=== PATIENT | male | born 1970 | race Native Hawaiian/Other Pacific Islander ===

== ENCOUNTER 2018-06-21 20:09 | Emergency (ER) | payer SELFPAY ==
[~2018-06-21] VITALS: Ht 182.9 cm; Wt 93.9 kg
[2018-06-21 20:18] VITALS: BP 123/78
[2018-06-21] MEDS ORDERED: KETOROLAC TROMETH 60MG/2ML VIAL IM ONE (23:45)
== END 2018-06-21 23:49 | disposition home or self-care (01) ==
LOC: ER 20:09
DX: S52.502A Unspecified fracture of the lower end of left radius, initial encounter for closed fracture (principal); S22.32XA Fracture of one rib, left side, initial encounter for closed fracture; V86.56XA Driver of dirt bike or motor/cross bike injured in nontraffic accident, initial encounter; Y93.89 Activity, other specified; Y99.8 Other external cause status; Y92.89 Other specified places as the place of occurrence of the external cause
CPT/HCPCS: 29125; 71101; 73110; 96372

== ENCOUNTER 2021-11-09 22:23 | Emergency (ER) | payer BC, MEDICAID ==
[~2021-11-09] VITALS: Ht 182.9 cm; Wt 90.7 kg
[2021-11-09 22:23] VITALS: BP 105/77
[2021-11-09] MEDS ORDERED: IPRATROPIUM BROM 0.5 MG/2.5ML INH SOL NEB ONE (22:30)
[2021-11-09] MEDS ORDERED: ALBUTEROL SULF 2.5 MG/0.5ML(0.5%) NEB SOLN NEB ONE (22:30)
[2021-11-10] MEDS ORDERED: ALBUTEROL SULF 2.5 MG/0.5ML(0.5%) NEB SOLN NEB ONE (01:15)
[2021-11-10 01:20] LABS: Basophils # (auto) 0 10 ^3/uL (0-0.2); Basophils % (auto) 0.1 % (0.0-2.0); Eosinophils # (auto) 0 10 ^3/uL (0-0.8); Eosinophils % (auto) 0.1 % (0.0-7.0); Hematocrit 43.6 % (41.0-53.0); Hemoglobin 14.5 g/dL (13.5-17.5); Lymphocytes # (auto) 0.5 10 ^3/uL (0.4-5.4); Lymphocytes % (auto) 5.5 % (10.0-50.0); Mean Corpuscular Hemoglobin 31.4 pg (28.0-32.0); Mean Corpuscular Hgb Conc. 33.2 g/dL (32.0-36.0); Mean Corpuscular Volume 94.4 fL (80.0-100.0); Monocytes # (auto) 0.4 10 ^3/uL (0-1.3); Monocytes % (auto) 4.3 % (0.0-12.0); Neutrophils # (auto) 7.9 10 ^3/uL (1.6-8.6); Red Blood Cells 4.61 10^6/uL (4.5-5.90); White Blood Cell 8.7 10^3/uL (4.4-10.8)
[2021-11-10 01:38] LABS: Albumin 3.8 g/dL (3.4-5.0); BUN/Creatinine Ratio 11.2; Calcium 8.9 mg/dL (8.5-10.1); Potassium 3.8 mmol/L (3.5-5.1)
[2021-11-10 01:41] LABS: Bilirubin, Total 0.3 mg/dL (0.2-1.0); Total Protein 8.2 g/dL (6.4-8.2)
[2021-11-10] MEDS ORDERED: ALBU108A5 IN (05:17)
[2021-11-10] MEDS ORDERED: PRED20TA2 PO (05:17)
[2021-11-10] MEDS ORDERED: LEVO500T31 PO (05:45)
== END 2021-11-10 07:30 | disposition left against medical advice (07) ==
LOC: ER 22:23
DX: S22.31XA Fracture of one rib, right side, initial encounter for closed fracture (principal); J45.909 Unspecified asthma, uncomplicated; J18.9 Pneumonia, unspecified organism; Z76.0 Encounter for issue of repeat prescription; F17.210 Nicotine dependence, cigarettes, uncomplicated; X58.XXXA Exposure to other specified factors, initial encounter; Y93.89 Activity, other specified; Y92.89 Other specified places as the place of occurrence of the external cause; Y99.8 Other external cause status
CPT/HCPCS: 36415; 71045; 80053; 84484; 85025; 93005; 94640; 99285; J7644

== ENCOUNTER 2021-12-08 17:00 | Inpatient (IN) | payer BC ==
[~2021-12-08] VITALS: Ht 182.9 cm; Wt 96.2 kg
[~2021-12-08 17:00] MED LIST: ALBU108A5 IN; LEVO500T31 PO; PRED20TA2 PO
[2021-12-08] MEDS ORDERED: VANCOMYCIN 1GM/250ML 250 ML IV ONE (19:15)
[2021-12-08 19:39] LABS: Basophils # (auto) 0.1 10 ^3/uL (0-0.2); Basophils % (auto) 0.5 % (0.0-2.0); Eosinophils # (auto) 0.4 10 ^3/uL (0-0.8); Eosinophils % (auto) 3.5 % (0.0-7.0); Hematocrit 41.3 % (41.0-53.0); Hemoglobin 13.3 g/dL (13.5-17.5); Lymphocytes # (auto) 1.2 10 ^3/uL (0.4-5.4); Lymphocytes % (auto) 10.5 % (10.0-50.0); Mean Corpuscular Hemoglobin 30.2 pg (28.0-32.0); Mean Corpuscular Hgb Conc. 32.1 g/dL (32.0-36.0); Mean Corpuscular Volume 94.1 fL (80.0-100.0); Monocytes # (auto) 0.9 10 ^3/uL (0-1.3); Monocytes % (auto) 7.9 % (0.0-12.0); Neutrophils # (auto) 8.6 10 ^3/uL (1.6-8.6); Neutrophils % (auto) 77.6 % (37.0-80.0); Red Blood Cells 4.39 10^6/uL (4.5-5.90); Red Cell Distribution Width 14.4 % (11.8-14.3); White Blood Cell 11.1 10^3/uL (4.4-10.8)
[2021-12-08 19:53] LABS: Albumin 3.2 g/dL (3.4-5.0); BUN/Creatinine Ratio 11.9; Calcium 8.5 mg/dL (8.5-10.1)
[2021-12-08 19:55] LABS: Bilirubin, Total 0.2 mg/dL (0.2-1.0); Total Protein 6.7 g/dL (6.4-8.2)
[2021-12-08] MEDS ORDERED: IOHEXOL 350 MG/ML 100ML IJ ONE (20:01)
[2021-12-09] MEDS ORDERED: ONDANSETRON HCL 4 MG/2 ML VIAL IV PRN (04:15)
[2021-12-09] MEDS ORDERED: HYDROcodone-ACET 5/325MG TAB PO PRN (04:15)
[2021-12-09] MEDS ORDERED: ALBUTEROL SULF 2.5 MG/0.5ML(0.5%) NEB SOLN NEB PRN (04:15)
[2021-12-09] MEDS ORDERED: TEMAZEPAM 15 MG CAP PO PRN (04:15)
[2021-12-09] MEDS ORDERED: ACETAMINOPHEN 325 MG TAB PO PRN (04:15)
[2021-12-09 04:24] VITALS: BP 126/81
[2021-12-09] MEDS ORDERED: cefTRIAXone 1GM/50ML D5W 50 ML IV SCH (04:30)
[2021-12-09 05:36] VITALS: BP 136/81
[2021-12-09] MEDS: CLINDAMYCIN 600MG IV 50 ML IV SCH ×2 (06:13→13:29)
[2021-12-09] MEDS ORDERED: PANTOPRAZOLE 40 MG TAB PO SCH (10:00)
[2021-12-09] MEDS ORDERED: predniSONE 20 MG TAB PO SCH (10:00)
[2021-12-09 11:34] VITALS: BP 126/94
[2021-12-09 13:15] VITALS: BP 131/92
[2021-12-09 16:36] VITALS: BP 132/77
== END 2021-12-09 19:45 | disposition left against medical advice (07) | DRG 603 ==
LOC: ER 17:09 → OVERFLOW 12-09 04:11 → WEST WING 12-09 05:11
PROVIDERS: ADMIT Nurse Practitioner; ATTEND Internal Medicine
DX: L03.115 Cellulitis of right lower limb (principal); R65.10 Systemic inflammatory response syndrome (SIRS) of non-infectious origin without acute organ dysfunction; L02.415 Cutaneous abscess of right lower limb; D72.829 Elevated white blood cell count, unspecified; F12.90 Cannabis use, unspecified, uncomplicated; I87.8 Other specified disorders of veins; J44.9 Chronic obstructive pulmonary disease, unspecified; Z20.822 Contact with and (suspected) exposure to COVID-19; F19.10 Other psychoactive substance abuse, uncomplicated; Z91.19 Patient's noncompliance with other medical treatment and regimen; Z53.29 Procedure and treatment not carried out because of patient's decision for other reasons
CPT/HCPCS: 36415; 73701; 80053; 83605; 85025; 87040; 93971; 94640; 96365; 96367; G0378; J0696; J3490

== ENCOUNTER 2022-03-24 09:21 | Inpatient (IN) | payer BC, MEDICAID ==
[~2022-03-24] VITALS: Ht 188 cm; Wt 98.2 kg
[2022-03-24] MEDS ORDERED: ALBUTEROL SULF 2.5 MG/0.5ML(0.5%) NEB SOLN NEB ONE ×2 (09:30→13:30)
[2022-03-24] MEDS ORDERED: IPRATROPIUM BROM 0.5 MG/2.5ML INH SOL NEB ONE ×2 (09:30→13:30)
[2022-03-24 10:19] LABS: Basophils # (auto) 0 10 ^3/uL (0-0.2); Basophils % (auto) 0.6 % (0.0-2.0); Eosinophils # (auto) 0.1 10 ^3/uL (0-0.8); Eosinophils % (auto) 1.6 % (0.0-7.0); Hematocrit 43.2 % (41.0-53.0); Hemoglobin 14.4 g/dL (13.5-17.5); Lymphocytes # (auto) 0.5 10 ^3/uL (0.4-5.4); Lymphocytes % (auto) 7.9 % (10.0-50.0); Mean Corpuscular Hgb Conc. 33.4 g/dL (32.0-36.0); Mean Corpuscular Volume 92.6 fL (80.0-100.0); Monocytes # (auto) 0.7 10 ^3/uL (0-1.3); Monocytes % (auto) 9.6 % (0.0-12.0); Neutrophils # (auto) 5.5 10 ^3/uL (1.6-8.6); Neutrophils % (auto) 80.3 % (37.0-80.0); Nucleated Red Blood Cells % 0.1 %; Red Blood Cells 4.66 10^6/uL (4.5-5.90); Red Cell Distribution Width 14.9 % (11.8-14.3); White Blood Cell 6.9 10^3/uL (4.4-10.8)
[2022-03-24 10:36] LABS: Albumin 3.6 g/dL (3.4-5.0); Calcium 8.7 mg/dL (8.5-10.1); Potassium 3.9 mmol/L (3.5-5.1)
[2022-03-24 10:39] LABS: BUN/Creatinine Ratio 12.2; Bilirubin, Total 0.4 mg/dL (0.2-1.0); Total Protein 7.1 g/dL (6.4-8.2)
[2022-03-24] MEDS ORDERED: DexAMETHasone SOD PHOS 10MG/1ML VIAL INJ IV ONE (13:30)
[2022-03-24] MEDS ORDERED: MAGNESIUM SULFATE 1GM/100ML 100 ML IV ONE (13:30)
[2022-03-24] MEDS ORDERED: ONDANSETRON HCL 4 MG/2 ML VIAL IV PRN (19:00)
[2022-03-24] MEDS ORDERED: MORPHINE SULFATE INJ 2 MG/ml SYRG IV PRN (19:00)
[2022-03-24] MEDS ORDERED: NITROGLYCERIN 0.4 MG SL TAB SL PRN (19:00)
[2022-03-24] MEDS ORDERED: ACETAMINOPHEN 325 MG TAB PO PRN (19:00)
[2022-03-24 20:31] VITALS: BP 126/66
[2022-03-24] MEDS: ALBUTEROL SULF 2.5 MG/0.5ML(0.5%) NEB SOLN NEB SCH (22:16)
[2022-03-24] MEDS: IPRATROPIUM BROM 0.5 MG/2.5ML INH SOL NEB SCH (22:16)
[2022-03-25] MEDS: SODIUM CHLORIDE 0.9% 1,000 ML IV SCH ×2 (00:19→11:41)
[2022-03-25] MEDS: methylPREDNISolone SOD SUCC 125 MG/2 ML VL IV SCH ×3 (00:19→23:22)
[2022-03-25] MEDS ORDERED: ALBUTEROL SULF 2.5 MG/0.5ML(0.5%) NEB SOLN NEB PRN (00:30)
[2022-03-25] MEDS: ALBUTEROL SULF 2.5 MG/0.5ML(0.5%) NEB SOLN NEB SCH ×6 (02:35→21:59)
[2022-03-25] MEDS: IPRATROPIUM BROM 0.5 MG/2.5ML INH SOL NEB SCH ×6 (02:35→21:59)
[2022-03-25 07:29] LABS: Basophils # (auto) 0 10 ^3/uL (0-0.2); Basophils % (auto) 0.1 % (0.0-2.0); Eosinophils # (auto) 0 10 ^3/uL (0-0.8); Hematocrit 44.6 % (41.0-53.0); Lymphocytes # (auto) 0.3 10 ^3/uL (0.4-5.4); Lymphocytes % (auto) 5.3 % (10.0-50.0); Mean Corpuscular Hemoglobin 31.4 pg (28.0-32.0); Mean Corpuscular Hgb Conc. 33.6 g/dL (32.0-36.0); Mean Corpuscular Volume 93.5 fL (80.0-100.0); Monocytes # (auto) 0.1 10 ^3/uL (0-1.3); Neutrophils # (auto) 5.8 10 ^3/uL (1.6-8.6); Neutrophils % (auto) 92.6 % (37.0-80.0); Red Blood Cells 4.77 10^6/uL (4.5-5.90); Red Cell Distribution Width 14.9 % (11.8-14.3); White Blood Cell 6.3 10^3/uL (4.4-10.8)
[2022-03-25 08:00] LABS: Albumin 3.5 g/dL (3.4-5.0); Bilirubin, Total 0.4 mg/dL (0.2-1.0); Potassium 4.1 mmol/L (3.5-5.1)
[2022-03-25] MEDS: ENOXAPARIN SOD 40 MG/0.4 ML SYRINGE SC SCH (10:00)
[2022-03-25] MEDS ORDERED: DOXYCYCLINE 100 MG TAB/CAP PO ONE (14:15)
[2022-03-25 18:32] LABS: Urine Bacteria NONE SEEN /hpf (None Seen); Urine Blood Negative /uL (Negative); Urine Specific Gravity 1.026 (1.001-1.035); Urine WBC 1 /hpf (0 - 3)
[2022-03-25 18:46] LABS: Alcohol, Urine < 3.0 mg/dL (0-10); Amphetamine Screen, Urine POSITIVE (NEGATIVE); Barbiturate Scree,Urine NEGATIVE (NEGATIVE); Benzodiazephine Screen, Urine NEGATIVE (NEGATIVE); Cannabinoid Screen, Urine POSITIVE (NEGATIVE); Cocaine Screen, Urine NEGATIVE (NEGATIVE); Opiate Scree,Urine NEGATIVE (NEGATIVE); Phencyclidine Screen, Urine NEGATIVE (NEGATIVE)
[2022-03-25] MEDS: DOXYCYCLINE 100 MG TAB/CAP PO SCH (23:22)
[2022-03-26] VITALS (7 sets, daily range): BP systolic 117–143; BP diastolic 57–89
[2022-03-26] MEDS: ALBUTEROL SULF 2.5 MG/0.5ML(0.5%) NEB SOLN NEB SCH ×6 (02:06→22:36)
[2022-03-26] MEDS: IPRATROPIUM BROM 0.5 MG/2.5ML INH SOL NEB SCH ×6 (02:06→22:36)
[2022-03-26] MEDS ORDERED: ERGOCALCIFEROL 50,000 UNIT(1.25MG) CAP PO SCH (09:15)
[2022-03-26] MEDS: ENOXAPARIN SOD 40 MG/0.4 ML SYRINGE SC SCH (09:42)
[2022-03-26] MEDS: methylPREDNISolone SOD SUCC 125 MG/2 ML VL IV SCH ×2 (09:43→21:15)
[2022-03-26] MEDS: DOXYCYCLINE 100 MG TAB/CAP PO SCH ×2 (09:43→21:15)
[2022-03-26] MEDS: guaiFENesin-CODEINE Liq 5 ML UD GT PRN (21:15)
[2022-03-27] VITALS (7 sets, daily range): BP systolic 117–154; BP diastolic 57–90
[2022-03-27] MEDS: ALBUTEROL SULF 2.5 MG/0.5ML(0.5%) NEB SOLN NEB SCH ×6 (05:00→22:04)
[2022-03-27] MEDS: IPRATROPIUM BROM 0.5 MG/2.5ML INH SOL NEB SCH ×6 (05:00→22:04)
[2022-03-27] MEDS: guaiFENesin-CODEINE Liq 5 ML UD GT PRN (08:46)
[2022-03-27] MEDS: DOXYCYCLINE 100 MG TAB/CAP PO SCH ×2 (08:47→08:50)
[2022-03-27] MEDS: ENOXAPARIN SOD 40 MG/0.4 ML SYRINGE SC SCH (08:50)
[2022-03-27] MEDS: methylPREDNISolone SOD SUCC 125 MG/2 ML VL IV SCH (08:51)
[2022-03-27] MEDS ORDERED: ERGOCALCIFEROL 50,000 UNIT(1.25MG) CAP PO SCH (09:00)
== END 2022-03-27 22:20 | disposition home or self-care (01) | DRG 193 ==
LOC: ER 09:21 → TELE 18:58 → TELE-WESTW 03-26 04:45
PROVIDERS: ADMIT Nurse Practitioner Family; ATTEND Internal Medicine
DX: J18.0 Bronchopneumonia, unspecified organism (principal); J96.00 Acute respiratory failure, unspecified whether with hypoxia or hypercapnia; J45.902 Unspecified asthma with status asthmaticus; F17.210 Nicotine dependence, cigarettes, uncomplicated; Z20.822 Contact with and (suspected) exposure to COVID-19; Z71.6 Tobacco abuse counseling
CPT/HCPCS: 36415; 36600; 71045; 71250; 80053; 80307; 81001; 82306; 82805; 83036; 83880; 84443; 84484; 85025; 87426; 87804; 94010; 94640; 96365; 96375; 99291; G0378; J1100